=== PATIENT | female | born 1995 | race Caucasian/White ===

== ENCOUNTER 2021-03-28 16:05 | Outpatient (CLI) | payer OTHER ==
[2021-03-28 17:08] LABS: #Basophils 0.1 10x3/uL (0.0-0.2); #Eosinphils 0.3 10x3/uL (0.0-0.5); #Monocytes 0.7 10x3/uL (0.0-1.1); #Neutrophils 5.5 10x3/uL (1.5-8.4); %Basophils 0.7 % (0.0-2.0); %Eosinophils 2.9 % (0.0-6.0); %Lymphocytes 28.8 % (18.0-47.0); %Monocytes 7.1 % (0.0-10.0); %Neutrophils 60.3 % (40.0-75.0); Hemoglobin 14.1 g/dL (12.0-15.5); Mean Corpuscular HGB CONC 31.7 g/dL (32.0-36.0); Mean Corpuscular Hemoglobin 27.2 pg (27.0-33.0); Mean Corpuscular Volume 85.7 fl (81.6-98.3); Mean Platelet Volume 10.6 fl (7.4-10.4); Platelet Count 315 10x3/uL (150-450); RBC Distribution Width 12.5 % (11.5-14.5); Red Blood Cell (RBC) Count 5.19 10x6/uL (3.90-5.03); White Blood Cell (WBC) Count 9.2 10x3/uL (3.5-10.5)
[2021-03-28 17:16] LABS: BHCG - Serum Negative (NEGATIVE); Pregs Control Background? CLEAR/WHITE (CLR/WHITE); Pregs Control Bar Appear? YES (CONTROL BAR)
[2021-03-29 08:03] LABS: SARS-CoV-2 PCR by NAA Not Detected (NotDetected)
== END 2021-03-28 16:06 | disposition home or self-care (01) ==
LOC: LABBT 16:05
PROVIDERS: ATTEND Orthopaedic Surgery
DX: Z01.812 Encounter for preprocedural laboratory examination (principal); S83.512A Sprain of anterior cruciate ligament of left knee, initial encounter; M23.204 Derangement of unspecified medial meniscus due to old tear or injury, left knee; Z20.822 Contact with and (suspected) exposure to COVID-19
CPT/HCPCS: 84703; 85025; U0003; U0005

== ENCOUNTER 2021-03-31 07:20 | Day surgery (SDC) | payer OTHER ==
[2021-03-30 11:37] VITALS: BMI 40.2
[2021-03-31] MEDS ORDERED: Fentanyl 100 MCG/2 ML VIAL ONE ×3 (08:36→12:25)
[2021-03-31] MEDS ORDERED: Midazolam HCl 2 mg/2 ml Vial ONE (08:36)
[2021-03-31] MEDS ORDERED: Fentanyl 100 MCG/2 ML VIAL IV PRN (09:20)
[2021-03-31] MEDS ORDERED: Promethazine HCl 25 MG/ML VIAL IM PRN (09:30)
[2021-03-31] MEDS ORDERED: Ondansetron PF 4 MG/2 ML Vial IVP PRN (09:30)
[2021-03-31] MEDS ORDERED: Zolpidem Tartrate 5 MG TAB PO PRN (09:30)
[2021-03-31] MEDS ORDERED: traMADol HCl 50 MG TAB PO PRN ×2 (09:30)
[2021-03-31] MEDS ORDERED: Ropivacaine 0.2% 550 ML 550 ML NERVE BLCK SCH (09:30)
[2021-03-31] MEDS ORDERED: HYDROcodone/Acetaminophen 10/325 mg Tablet PO PRN ×2 (09:30)
[2021-03-31] MEDS ORDERED: Lidocaine 1% PF 5 ML VIAL ONE (09:42)
[2021-03-31] MEDS ORDERED: Bupivacaine HCl 0.5%/Epinephrine 1:200,000/PF 30 ml Vial ONE (09:42)
[2021-03-31] MEDS ORDERED: PROPOFOL 200 MG/20 ML VIAL ONE (09:42)
[2021-03-31] MEDS ORDERED: Ropivacaine 0.5% HCl/PF (150 MG/30 ML VIAL) ONE (09:42)
[2021-03-31] MEDS ORDERED: Dexamethasone 20 MG/5 ML VIAL ONE (09:42)
[2021-03-31] MEDS ORDERED: Ondansetron PF 4 MG/2 ML Vial ONE (09:42)
[2021-03-31] MEDS ORDERED: ePHEDrine 50 MG/ML VIAL ONE (09:42)
[2021-03-31] MEDS ORDERED: Ketorolac Tromethamine 30 MG/ML VIAL IVP SCH (12:00)
[2021-03-31] MEDS ORDERED: Meperidine HCl/PF 25 MG/ML VIAL ONE (12:26)
[2021-03-31] MEDS ORDERED: HYDROcodone/Acetaminophen 5/325 mg Tablet ONE (14:45)
== END 2021-03-31 15:00 | disposition home or self-care (01) ==
LOC: SDC 07:20
PROVIDERS: ATTEND Orthopaedic Surgery
PROC: 0MRP47Z Replacement of Left Knee Bursa and Ligament with Autologous Tissue Substitute, Percutaneous Endoscopic Approach (ICD-10-PCS; principal; 2021-03-31)
PROC: 0SBD4ZZ Excision of Left Knee Joint, Percutaneous Endoscopic Approach (ICD-10-PCS; principal; 2021-03-31)
DX: S83.512A Sprain of anterior cruciate ligament of left knee, initial encounter (principal); M23.204 Derangement of unspecified medial meniscus due to old tear or injury, left knee; X50.1XXA Overexertion from prolonged static or awkward postures, initial encounter; Z20.822 Contact with and (suspected) exposure to COVID-19; Z01.812 Encounter for preprocedural laboratory examination
CPT/HCPCS: 84703; 85025; A4306; C1713; J0690; J1100; J2175; J2250; J2405; J2704; J2795; J3010; J3490; U0003; U0005